=== PATIENT | male | born 1950 | race Caucasian/White ===

== ENCOUNTER 2021-03-09 09:16 | Inpatient (IN) | payer OTHER ==
[2021-03-09] MEDS ORDERED: SODIUM CHLORIDE 0.9% 500 ML INFUS.BAG IV ONE (10:56)
[2021-03-09 11:22] LABS: BASO % 0.7 % (0-2.0); HEMATOCRIT 40.6 % (35.4-49); HEMOGLOBIN 13.9 GM/dL (11.7-16.9); LYMPH % 9.4 % (8-40); MCH 32.5 pg (25.7-33.7); MCHC 34.3 g/dl (32.0-35.9); MEAN CELL VOLUME 94.9 fl (80-96); MEAN PLT VOLUME 8.6 fl (7.5-11.1); MONO % 6.7 % (3.8-10.2); NEUT % 83.2 % (42.8-82.8); PLATELET COUNT 255 10^3/uL (134-434); RBC 4.28 M/mm3 (4.00-5.60); RDW 13.5 % (11.9-15.9); WHITE BLOOD COUNT 7.4 K/mm3 (4.0-10.0)
[2021-03-09 11:38] LABS: INR 1.15 (0.83-1.09); PROTHROMBIN TIME (PATIENT) 13.3 SEC (9.7-13.0)
[2021-03-09 11:40] LABS: CHLORIDE 102 mmol/L (98-107); SODIUM 134 mmol/L (136-145)
[2021-03-09 11:41] LABS: ACTIVATED PTT 30.2 SECONDS (25.2-36.5)
[2021-03-09 11:42] LABS: CALCIUM 7.8 mg/dL (8.5-10.1)
[2021-03-09 11:43] LABS: ANION GAP 17 MMOL/L (8-16); CO2 15 mmol/L (21-32); GLUCOSE,RANDOM 262 mg/dL (74-106)
[2021-03-09 11:46] LABS: CREATININE 0.7 mg/dL (0.55-1.3); SGOT/AST 45 U/L (15-37); SGPT/ALT 32 U/L (13-61)
[2021-03-09 11:48] LABS: BILIRUBIN,TOTAL 0.5 mg/dL (0.2-1); TOT PROT 6.6 g/dl (6.4-8.2)
[2021-03-09 11:49] LABS: ALK PHOS 70 U/L (45-117)
[2021-03-09 12:45] LABS: VENOUS BASE EXCESS -7.4 mmol/L (-2-2); VENOUS O2 SATURATION 79.6 % (70-80); VENOUS PCO2 30.5 mmHg (38-52); VENOUS PH 7.356 (7.310-7.410)
[2021-03-09 13:32] LABS: EPI CELLS 11 /uL (0-25.1); HYALINE CASTS 4 /uL (0-3.1); PH,URINE 5.5 (5.0-8.0); URINE APPEARANCE CLEAR; URINE BACTERIA 2 /uL (0-1359); URINE BILIRUBIN NEGATIVE (NEGATIVE); URINE COLOR YELLOW; URINE GLUCOSE (UA) 3+ (NEGATIVE); URINE KETONE 4+ (NEGATIVE); URINE LEUK ESTERASE NEGATIVE (NEGATIVE); URINE NITRITE NEGATIVE (NEGATIVE); URINE PROTEIN 1+ (NEGATIVE); URINE RBC 9 /uL (0-23.9); URINE UROBILINOGEN 0.2 mg/dL (0.2-1.0); URINE WBC 6 /uL (0-25.8)
[2021-03-09] MEDS ORDERED: DEXAMETHASONE SOD PHOSPHATE 4 MG/1 ML VIAL IVPUSH ONE (15:55)
[2021-03-09] MEDS ORDERED: DEXAMETHASONE SOD PHOSPHATE 10 MG/1 ML VIAL ONE (16:10)
[2021-03-09] MEDS ORDERED: ACETAMINOPHEN 325 MG TABLET (FP) PO PRN (16:31)
[2021-03-09] MEDS ORDERED: REMDESIVIR 200 MG in SODIUM CHLORIDE 250 ML IVPB ONE (18:00)
[2021-03-09] MEDS: LACTATED RINGERS SOLUTION 1,000 ML IV SCH (19:41)
[2021-03-09] MEDS ORDERED: HEPARIN NA (PORCINE) 5,000 UNITS/ML 1ML VIAL ONE (21:23)
[2021-03-09] MEDS: HEPARIN NA (PORCINE) 5,000 UNITS/ML 1ML VIAL SQ SCH (21:55)
[2021-03-10] MEDS: INSULIN SLIDING SCALE (NOVOLOG) 1 VIAL SQ SCH ×2 (07:45→17:26)
[2021-03-10 09:23] LABS: HEMATOCRIT 40.9 % (35.4-49); HEMOGLOBIN 13.8 GM/dL (11.7-16.9); MCH 32.2 pg (25.7-33.7); MCHC 33.6 g/dl (32.0-35.9); MEAN CELL VOLUME 95.9 fl (80-96); MEAN PLT VOLUME 8.2 fl (7.5-11.1); PLATELET COUNT 239 10^3/uL (134-434); RBC 4.27 M/mm3 (4.00-5.60); RDW 13.9 % (11.9-15.9); WHITE BLOOD COUNT 4.9 K/mm3 (4.0-10.0)
[2021-03-10] MEDS ORDERED: DEXAMETHASONE SOD PHOSPHATE 10 MG/1 ML VIAL ONE (09:49)
[2021-03-10] MEDS ORDERED: CHOLECALCIFEROL (VIT D3) 1,000 UNIT (25 MCG) TABLET ONE (09:49)
[2021-03-10] MEDS ORDERED: HEPARIN NA (PORCINE) 5,000 UNITS/ML 1ML VIAL ONE (09:49)
[2021-03-10] MEDS ORDERED: ZINC SULFATE 220 MG CAPSULE (FP) ONE (09:49)
[2021-03-10 09:54] LABS: ALBUMIN 2.9 g/dl (3.4-5.0); BLOOD UREA NITROGEN 13.7 mg/dL (7-18); CREATININE 0.6 mg/dL (0.55-1.3)
[2021-03-10 09:56] LABS: BILIRUBIN,TOTAL 0.4 mg/dL (0.2-1); TOT PROT 6.5 g/dl (6.4-8.2)
[2021-03-10 09:57] LABS: CALCIUM 8.4 mg/dL (8.5-10.1)
[2021-03-10] MEDS: HEPARIN NA (PORCINE) 5,000 UNITS/ML 1ML VIAL SQ SCH ×2 (10:16→21:47)
[2021-03-10] MEDS: DEXAMETHASONE SOD PHOSPHATE 10 MG/1 ML VIAL IVPUSH SCH (10:16)
[2021-03-10] MEDS: ZINC SULFATE 220 MG CAPSULE (FP) PO SCH (10:16)
[2021-03-10] MEDS: CHOLECALCIFEROL (VIT D3) 1,000 UNIT (25 MCG) TABLET PO SCH (10:17)
[2021-03-10] MEDS: LACTATED RINGERS SOLUTION 1,000 ML IV SCH (17:26)
[2021-03-11] MEDS: INSULIN SLIDING SCALE (NOVOLOG) 1 VIAL SQ SCH (06:38)
[2021-03-11] MEDS ORDERED: ZINC SULFATE 220 MG CAPSULE (FP) ONE (10:05)
[2021-03-11] MEDS ORDERED: CHOLECALCIFEROL (VIT D3) 1,000 UNIT (25 MCG) TABLET ONE (10:05)
[2021-03-11] MEDS ORDERED: DEXAMETHASONE SOD PHOSPHATE 10 MG/1 ML VIAL ONE (10:05)
[2021-03-11] MEDS ORDERED: HEPARIN NA (PORCINE) 5,000 UNITS/ML 1ML VIAL ONE (10:06)
[2021-03-11] MEDS: CHOLECALCIFEROL (VIT D3) 1,000 UNIT (25 MCG) TABLET PO SCH (10:56)
[2021-03-11] MEDS: ZINC SULFATE 220 MG CAPSULE (FP) PO SCH (10:56)
[2021-03-11] MEDS: HEPARIN NA (PORCINE) 5,000 UNITS/ML 1ML VIAL SQ SCH ×2 (10:56→23:00)
[2021-03-11] MEDS: DEXAMETHASONE SOD PHOSPHATE 10 MG/1 ML VIAL IVPUSH SCH (10:56)
[2021-03-11 23:26] VITALS: BMI 34.7
[2021-03-12] MEDS ORDERED: ALBUTEROL SO4 HFA INHALER IH PRN (05:32)
[2021-03-12] MEDS: INSULIN SLIDING SCALE (NOVOLOG) 1 VIAL SQ SCH ×3 (06:49→21:39)
[2021-03-12] MEDS: ZINC SULFATE 220 MG CAPSULE (FP) PO SCH (10:51)
[2021-03-12] MEDS: CHOLECALCIFEROL (VIT D3) 1,000 UNIT (25 MCG) TABLET PO SCH (10:51)
[2021-03-12] MEDS: HEPARIN NA (PORCINE) 5,000 UNITS/ML 1ML VIAL SQ SCH (10:51)
[2021-03-12] MEDS: DEXAMETHASONE SOD PHOSPHATE 10 MG/1 ML VIAL IVPUSH SCH (10:52)
[2021-03-12] MEDS ORDERED: DEXAMETHASONE SOD PHOSPHATE 10 MG/1 ML VIAL IVPB ONE (11:06)
[2021-03-12] MEDS ORDERED: ALBUTEROL SO4 HFA INHALER IH SCH (12:00)
[2021-03-12] MEDS ORDERED: DEXAMETHASONE SOD PHOSPHATE 20 MG/5 ML VIAL IVPB ONE (12:34)
[2021-03-12] MEDS ORDERED: DEXAMETHASONE SOD PHOSPHATE 10 MG/1 ML VIAL ONE (12:36)
[2021-03-12 12:42] LABS: BASO % 0.3 % (0-2.0); HEMATOCRIT 43.6 % (35.4-49); HEMOGLOBIN 14.7 GM/dL (11.7-16.9); LYMPH % 5.6 % (8-40); MCH 31.8 pg (25.7-33.7); MCHC 33.7 g/dl (32.0-35.9); MEAN CELL VOLUME 94.3 fl (80-96); MONO % 5.5 % (3.8-10.2); NEUT % 88.6 % (42.8-82.8); PLATELET COUNT 303 10^3/uL (134-434); RBC 4.63 M/mm3 (4.00-5.60); RDW 14.1 % (11.9-15.9); WHITE BLOOD COUNT 10.6 K/mm3 (4.0-10.0)
[2021-03-12 13:48] LABS: CALCIUM 8.5 mg/dL (8.5-10.1)
[2021-03-12 13:49] LABS: BLOOD UREA NITROGEN 17.9 mg/dL (7-18); MAGNESIUM 2.5 mg/dL (1.8-2.4)
[2021-03-12 13:51] LABS: CREATININE 0.8 mg/dL (0.55-1.3); PHOSPHOROUS 1.9 mg/dL (2.5-4.9)
[2021-03-12 13:53] LABS: BILIRUBIN,TOTAL 0.4 mg/dL (0.2-1); TOT PROT 6.9 g/dl (6.4-8.2)
[2021-03-12] MEDS: ALBUTEROL SO4 HFA INHALER IH SCH ×2 (18:27→21:43)
[2021-03-12] MEDS: ENOXAPARIN NA (PORCINE) 40 MG/0.4 ML DISP.SYRIN SQ SCH (21:43)
[2021-03-12] MEDS ORDERED: BUDESONIDE/FORMETEROL FUMARATE 160/4.5 mcg INHALER IH SCH (22:00)
[2021-03-12] MEDS ORDERED: ENOXAPARIN NA (PORCINE) 40 MG/0.4 ML DISP.SYRIN SQ SCH (22:00)
[2021-03-13] MEDS: BUDESONIDE/FORMETEROL FUMARATE 160/4.5 mcg INHALER IH SCH ×3 (00:14→21:35)
[2021-03-13] MEDS: INSULIN SLIDING SCALE (NOVOLOG) 1 VIAL SQ SCH ×2 (06:39→17:41)
[2021-03-13 07:14] LABS: ALBUMIN 2.6 g/dl (3.4-5.0); BASO % 0.1 % (0-2.0); BLOOD UREA NITROGEN 25.8 mg/dL (7-18); CALCIUM 8.5 mg/dL (8.5-10.1); HEMATOCRIT 43.9 % (35.4-49); HEMOGLOBIN 14.5 GM/dL (11.7-16.9); LYMPH % 6.7 % (8-40); MAGNESIUM 2.7 mg/dL (1.8-2.4); MCH 31.7 pg (25.7-33.7); MCHC 33.1 g/dl (32.0-35.9); MEAN CELL VOLUME 95.9 fl (80-96); MEAN PLT VOLUME 8.8 fl (7.5-11.1); MONO % 4.8 % (3.8-10.2); NEUT % 88.4 % (42.8-82.8); PLATELET COUNT 312 10^3/uL (134-434); RBC 4.58 M/mm3 (4.00-5.60); RDW 14.4 % (11.9-15.9); WHITE BLOOD COUNT 10.7 K/mm3 (4.0-10.0)
[2021-03-13 07:17] LABS: CREATININE 0.7 mg/dL (0.55-1.3)
[2021-03-13 07:18] LABS: BILIRUBIN,TOTAL 0.5 mg/dL (0.2-1); PHOSPHOROUS 3.5 mg/dL (2.5-4.9)
[2021-03-13 07:19] LABS: TOT PROT 6.5 g/dl (6.4-8.2)
[2021-03-13] MEDS: CHOLECALCIFEROL (VIT D3) 1,000 UNIT (25 MCG) TABLET PO SCH (09:56)
[2021-03-13] MEDS: ZINC SULFATE 220 MG CAPSULE (FP) PO SCH (09:56)
[2021-03-13] MEDS: ENOXAPARIN NA (PORCINE) 40 MG/0.4 ML DISP.SYRIN SQ SCH ×2 (09:56→21:35)
[2021-03-13] MEDS: ASCORBIC ACID 500 MG TABLET (FP) PO SCH ×2 (09:56→21:34)
[2021-03-13] MEDS: DEXAMETHASONE SOD PHOSPHATE 10 MG/1 ML VIAL IVPUSH SCH (09:56)
[2021-03-13] MEDS ORDERED: DEXAMETHASONE SOD PHOSPHATE 10 MG/1 ML VIAL IVPUSH SCH (10:00)
[2021-03-13] MEDS: ALBUTEROL SO4 HFA INHALER IH SCH ×4 (10:13→21:35)
[2021-03-14] MEDS ORDERED: MELATONIN 5 MG TABLETS PO ONE (01:43)
[2021-03-14 06:53] LABS: BASO % 0.2 % (0-2.0); HEMATOCRIT 43.9 % (35.4-49); HEMOGLOBIN 14.1 GM/dL (11.7-16.9); LYMPH % 4.8 % (8-40); MEAN CELL VOLUME 96.8 fl (80-96); MONO % 5.4 % (3.8-10.2); NEUT % 89.6 % (42.8-82.8); PLATELET COUNT 339 10^3/uL (134-434); RBC 4.54 M/mm3 (4.00-5.60); RDW 14.4 % (11.9-15.9)
[2021-03-14] MEDS: INSULIN SLIDING SCALE (NOVOLOG) 1 VIAL SQ SCH ×2 (07:02→17:34)
[2021-03-14 07:14] LABS: CALCIUM 8.5 mg/dL (8.5-10.1)
[2021-03-14 07:15] LABS: ALBUMIN 2.5 g/dl (3.4-5.0); BLOOD UREA NITROGEN 25.9 mg/dL (7-18)
[2021-03-14 07:18] LABS: CREATININE 0.7 mg/dL (0.55-1.3)
[2021-03-14 07:19] LABS: TOT PROT 6.3 g/dl (6.4-8.2)
[2021-03-14 07:20] LABS: BILIRUBIN,TOTAL 0.6 mg/dL (0.2-1)
[2021-03-14] MEDS: ALBUTEROL SO4 HFA INHALER IH SCH ×4 (08:15→21:39)
[2021-03-14] MEDS: DEXAMETHASONE SOD PHOSPHATE 10 MG/1 ML VIAL IVPUSH SCH (09:40)
[2021-03-14] MEDS: CHOLECALCIFEROL (VIT D3) 1,000 UNIT (25 MCG) TABLET PO SCH (09:40)
[2021-03-14] MEDS: ENOXAPARIN NA (PORCINE) 40 MG/0.4 ML DISP.SYRIN SQ SCH ×2 (09:40→21:40)
[2021-03-14] MEDS: ZINC SULFATE 220 MG CAPSULE (FP) PO SCH (09:40)
[2021-03-14] MEDS: ASCORBIC ACID 500 MG TABLET (FP) PO SCH ×2 (09:41→21:40)
[2021-03-14] MEDS: BUDESONIDE/FORMETEROL FUMARATE 160/4.5 mcg INHALER IH SCH ×2 (09:41→21:40)
[2021-03-14] MEDS ORDERED: MELATONIN 5 MG TABLETS PO PRN (22:00)
[2021-03-15] MEDS: INSULIN SLIDING SCALE (NOVOLOG) 1 VIAL SQ SCH ×2 (08:50→17:28)
[2021-03-15] MEDS: ALBUTEROL SO4 HFA INHALER IH SCH ×4 (08:59→21:32)
[2021-03-15] MEDS: DEXAMETHASONE SOD PHOSPHATE 10 MG/1 ML VIAL IVPUSH SCH (09:14)
[2021-03-15] MEDS: ZINC SULFATE 220 MG CAPSULE (FP) PO SCH (09:14)
[2021-03-15] MEDS: ACETAMINOPHEN 325 MG TABLET (FP) PO PRN ×2 (09:14→17:29)
[2021-03-15] MEDS: CHOLECALCIFEROL (VIT D3) 1,000 UNIT (25 MCG) TABLET PO SCH (09:14)
[2021-03-15] MEDS: ENOXAPARIN NA (PORCINE) 40 MG/0.4 ML DISP.SYRIN SQ SCH ×2 (09:14→21:30)
[2021-03-15] MEDS: ASCORBIC ACID 500 MG TABLET (FP) PO SCH ×2 (09:16→21:31)
[2021-03-15] MEDS: BUDESONIDE/FORMETEROL FUMARATE 160/4.5 mcg INHALER IH SCH ×2 (09:16→21:31)
[2021-03-15] MEDS: LORazepam 2 MG/ML SDV VIAL IVPUSH PRN (17:27)
[2021-03-15] MEDS ORDERED: ONDANSETRON 4 MG/2 ML VIAL IVPUSH ONE (20:36)
[2021-03-15] MEDS ORDERED: LORazepam 2 MG/ML SDV VIAL IVPUSH ONE (20:37)
[2021-03-15] MEDS ORDERED: INSULIN (LEVEMIR) 100 UNITS/ML UNITS SQ SCH (22:00)
[2021-03-15] MEDS ORDERED: INSULIN (NOVOLOG) ASPART 100 UNITS/ML 10ML VIAL SQ ONE (22:32)
[2021-03-16] MEDS: LORazepam 2 MG/ML SDV VIAL IVPUSH PRN ×3 (04:20→18:05)
[2021-03-16] MEDS: INSULIN SLIDING SCALE (NOVOLOG) 1 VIAL SQ SCH ×2 (07:02→17:50)
[2021-03-16 07:57] LABS: HEMATOCRIT 50.9 % (35.4-49); HEMOGLOBIN 16.6 GM/dL (11.7-16.9); MCH 31.6 pg (25.7-33.7); MCHC 32.5 g/dl (32.0-35.9); MEAN CELL VOLUME 97.2 fl (80-96); MEAN PLT VOLUME 9.1 fl (7.5-11.1); PLATELET COUNT 355 10^3/uL (134-434); RBC 5.23 M/mm3 (4.00-5.60); RDW 14.5 % (11.9-15.9)
[2021-03-16 08:21] LABS: CHLORIDE 116 mmol/L (98-107); SODIUM 145 mmol/L (136-145)
[2021-03-16 08:38] LABS: ALBUMIN 2.6 g/dl (3.4-5.0); ANION GAP 20 MMOL/L (8-16); BLOOD UREA NITROGEN 38.3 mg/dL (7-18); CO2 9 mmol/L (21-32); GLUCOSE,RANDOM 373 mg/dL (74-106)
[2021-03-16 08:41] LABS: SGOT/AST 15 U/L (15-37); SGPT/ALT 19 U/L (13-61)
[2021-03-16 08:42] LABS: BILIRUBIN,TOTAL 0.8 mg/dL (0.2-1); TOT PROT 7.1 g/dl (6.4-8.2)
[2021-03-16 08:43] LABS: ALK PHOS 98 U/L (45-117)
[2021-03-16] MEDS: ALBUTEROL SO4 HFA INHALER IH SCH ×4 (08:43→22:45)
[2021-03-16] MEDS: DEXAMETHASONE SOD PHOSPHATE 10 MG/1 ML VIAL IVPUSH SCH (10:22)
[2021-03-16] MEDS: ENOXAPARIN NA (PORCINE) 40 MG/0.4 ML DISP.SYRIN SQ SCH ×2 (10:22→21:57)
[2021-03-16] MEDS: ZINC SULFATE 220 MG CAPSULE (FP) PO SCH (10:22)
[2021-03-16] MEDS: BUDESONIDE/FORMETEROL FUMARATE 160/4.5 mcg INHALER IH SCH ×2 (10:23→21:58)
[2021-03-16] MEDS: ASCORBIC ACID 500 MG TABLET (FP) PO SCH ×2 (10:23→21:58)
[2021-03-16] MEDS: CHOLECALCIFEROL (VIT D3) 1,000 UNIT (25 MCG) TABLET PO SCH (10:23)
[2021-03-16] MEDS ORDERED: SODIUM CHLORIDE 100 ML IVPB ONE ×2 (11:22→17:42)
[2021-03-16] MEDS ORDERED: AMPICILLIN NA/SULBACTAM NA 3 GM VIAL ONE ×2 (11:22→17:42)
[2021-03-16] MEDS: AMPICILLIN NA/SULBACTAM NA 3 GM in SODIUM CHLORIDE 100 ML IVPB SCH ×2 (11:23→17:48)
[2021-03-16 12:00] LABS: ANISOCYTOSIS 0; HELMET CELLS 0; HOWELL-JOLLY BODIES 0; MACROCYTOSIS 0; OVALOCYTE 0; PLATELET ESTIMATE NORMAL; ROULEAU 0; SICKELED CELLS 0; TARGET CELLS 0; TEAR DROP CELLS 0; TOXIC GRANULATION 0
[2021-03-16] MEDS ORDERED: morphine SULFATE 4 MG/ML VIAL IVPUSH PRN (13:00)
[2021-03-16] MEDS ORDERED: INSULIN (LEVEMIR) 100 UNITS/ML UNITS SQ SCH (22:00)
[2021-03-16] MEDS ORDERED: INSULIN (NOVOLOG) ASPART 100 UNITS/ML 10ML VIAL SQ ONE (23:31)
[2021-03-17] MEDS: AMPICILLIN NA/SULBACTAM NA 3 GM in SODIUM CHLORIDE 100 ML IVPB SCH ×3 (03:00→17:03)
[2021-03-17] MEDS ORDERED: AMPICILLIN NA/SULBACTAM NA 3 GM VIAL ONE ×4 (03:21→16:18)
[2021-03-17] MEDS ORDERED: SODIUM CHLORIDE 100 ML IVPB ONE ×4 (03:21→16:19)
[2021-03-17] MEDS: LORazepam 2 MG/ML SDV VIAL IVPUSH PRN (03:56)
[2021-03-17] MEDS: INSULIN SLIDING SCALE (NOVOLOG) 1 VIAL SQ SCH ×3 (06:30→16:53)
[2021-03-17] MEDS ORDERED: dilTIAZem HCL 50 MG/10 ML - 10 ML VIAL IVPUSH ONE ×2 (07:44→11:30)
[2021-03-17] MEDS ORDERED: dilTIAZem HCL 125 MG/25 ML - 25 ML VIAL ONE (07:47)
[2021-03-17 08:04] LABS: HEMATOCRIT 55.4 % (35.4-49); MCH 31.4 pg (25.7-33.7); MCHC 32.5 g/dl (32.0-35.9); MEAN CELL VOLUME 96.6 fl (80-96); MEAN PLT VOLUME 10.1 fl (7.5-11.1); PLATELET COUNT 349 10^3/uL (134-434); RBC 5.73 M/mm3 (4.00-5.60); RDW 15.1 % (11.9-15.9); WHITE BLOOD COUNT 22.3 K/mm3 (4.0-10.0)
[2021-03-17 08:15] LABS: CHLORIDE 126 mmol/L (98-107); SODIUM 156 mmol/L (136-145)
[2021-03-17 08:17] LABS: CALCIUM 9.8 mg/dL (8.5-10.1)
[2021-03-17 08:18] LABS: ALBUMIN 2.6 g/dl (3.4-5.0); ANION GAP 19 MMOL/L (8-16); CO2 12 mmol/L (21-32); MAGNESIUM 3.8 mg/dL (1.8-2.4)
[2021-03-17 08:21] LABS: CREATININE 1.7 mg/dL (0.55-1.3); PHOSPHOROUS 2.4 mg/dL (2.5-4.9); SGOT/AST 17 U/L (15-37); SGPT/ALT 20 U/L (13-61)
[2021-03-17 08:23] LABS: BILIRUBIN,TOTAL 0.5 mg/dL (0.2-1); TOT PROT 7.3 g/dl (6.4-8.2)
[2021-03-17 08:24] LABS: ALK PHOS 112 U/L (45-117)
[2021-03-17 08:38] LABS: BLOOD UREA NITROGEN 72.9 mg/dL (7-18)
[2021-03-17 08:51] LABS: GLUCOSE,RANDOM 523 mg/dL (74-106)
[2021-03-17] MEDS: ALBUTEROL SO4 HFA INHALER IH SCH ×4 (09:00→22:13)
[2021-03-17 09:27] LABS: ANISOCYTOSIS 1+; MACROCYTOSIS 0; PLATELET ESTIMATE NORMAL
[2021-03-17] MEDS: CHOLECALCIFEROL (VIT D3) 1,000 UNIT (25 MCG) TABLET PO SCH (10:19)
[2021-03-17] MEDS: ASCORBIC ACID 500 MG TABLET (FP) PO SCH ×2 (10:19→22:26)
[2021-03-17] MEDS: ZINC SULFATE 220 MG CAPSULE (FP) PO SCH (10:20)
[2021-03-17] MEDS: ENOXAPARIN NA (PORCINE) 40 MG/0.4 ML DISP.SYRIN SQ SCH ×2 (10:21→22:25)
[2021-03-17] MEDS: DEXAMETHASONE SOD PHOSPHATE 10 MG/1 ML VIAL IVPUSH SCH (10:21)
[2021-03-17] MEDS: BUDESONIDE/FORMETEROL FUMARATE 160/4.5 mcg INHALER IH SCH ×2 (10:22→22:26)
[2021-03-17] MEDS: INSULIN (LEVEMIR) 100 UNITS/ML UNITS SQ SCH ×2 (11:00→22:35)
[2021-03-17] MEDS ORDERED: INSULIN REGULAR HUMAN 100 UNITS/ML *VIAL IVPUSH ONE (16:37)
[2021-03-17] MEDS: ACETAMINOPHEN 1000 MG/100 ML BAG IVPB PRN (17:05)
[2021-03-17] MEDS ORDERED: INSULIN (LEVEMIR) 100 UNITS/ML UNITS SQ SCH (22:31)
[2021-03-18] MEDS ORDERED: AMPICILLIN NA/SULBACTAM NA 3 GM VIAL ONE ×3 (02:16→16:48)
[2021-03-18] MEDS ORDERED: SODIUM CHLORIDE 100 ML IVPB ONE ×3 (02:17→16:48)
[2021-03-18] MEDS ORDERED: dilTIAZem HCL 25 MG/5 ML - 5 ML VIAL ONE (09:31)
[2021-03-18] MEDS: AMPICILLIN NA/SULBACTAM NA 3 GM in SODIUM CHLORIDE 100 ML IVPB SCH ×3 (09:40→20:46)
[2021-03-18] MEDS: ALBUTEROL SO4 HFA INHALER IH SCH ×4 (09:41→20:47)
[2021-03-18] MEDS: INSULIN SLIDING SCALE (NOVOLOG) 1 VIAL SQ SCH ×3 (09:41→18:34)
[2021-03-18] MEDS: DEXAMETHASONE SOD PHOSPHATE 10 MG/1 ML VIAL IVPUSH SCH (09:41)
[2021-03-18] MEDS: ZINC SULFATE 220 MG CAPSULE (FP) PO SCH (09:42)
[2021-03-18] MEDS: ENOXAPARIN NA (PORCINE) 40 MG/0.4 ML DISP.SYRIN SQ SCH ×2 (09:42→21:24)
[2021-03-18] MEDS: BUDESONIDE/FORMETEROL FUMARATE 160/4.5 mcg INHALER IH SCH ×2 (09:43→21:24)
[2021-03-18] MEDS: CHOLECALCIFEROL (VIT D3) 1,000 UNIT (25 MCG) TABLET PO SCH (09:43)
[2021-03-18] MEDS: ASCORBIC ACID 500 MG TABLET (FP) PO SCH ×2 (09:43→21:24)
[2021-03-18] MEDS ORDERED: INSULIN (LEVEMIR) 100 UNITS/ML UNITS SQ ONE (10:24)
[2021-03-18] MEDS: ACETAMINOPHEN 1000 MG/100 ML BAG IVPB PRN (12:32)
[2021-03-18] MEDS ORDERED: SODIUM CHLORIDE 0.45% 1,000 ML IV SCH (13:00)
[2021-03-18 14:20] LABS: HEMATOCRIT 52.9 % (35.4-49); MCH 30.8 pg (25.7-33.7); MCHC 32.1 g/dl (32.0-35.9); MEAN CELL VOLUME 95.9 fl (80-96); MEAN PLT VOLUME 11.3 fl (7.5-11.1); PLATELET COUNT 225 10^3/uL (134-434); RBC 5.52 M/mm3 (4.00-5.60); WHITE BLOOD COUNT 18.7 K/mm3 (4.0-10.0)
[2021-03-18 14:55] LABS: CHLORIDE 136 mmol/L (98-107)
[2021-03-18 14:57] LABS: CALCIUM 9.2 mg/dL (8.5-10.1); CO2 16 mmol/L (21-32)
[2021-03-18 15:01] LABS: SGOT/AST 506 U/L (15-37); SGPT/ALT 213 U/L (13-61)
[2021-03-18 15:02] LABS: BILIRUBIN,TOTAL 0.5 mg/dL (0.2-1)
[2021-03-18 15:03] LABS: TOT PROT 6.4 g/dl (6.4-8.2)
[2021-03-18 15:04] LABS: ALK PHOS 92 U/L (45-117)
[2021-03-18 15:28] LABS: ANISOCYTOSIS 1+; MACROCYTOSIS 0; PLATELET ESTIMATE NORMAL
[2021-03-18 16:08] LABS: ANION GAP 13 MMOL/L (8-16); BLOOD UREA NITROGEN 125.9 mg/dL (7-18); GLUCOSE,RANDOM 441 mg/dL (74-106); LDH > 1000 U/L (87-246); SODIUM 165 mmol/L (136-145)
[2021-03-18] MEDS: INSULIN (LEVEMIR) 100 UNITS/ML UNITS SQ SCH (21:24)
[2021-03-19] MEDS ORDERED: SODIUM CHLORIDE 100 ML IVPB ONE ×3 (00:49→16:51)
[2021-03-19] MEDS ORDERED: AMPICILLIN NA/SULBACTAM NA 3 GM VIAL ONE ×3 (00:49→16:51)
[2021-03-19] MEDS: AMPICILLIN NA/SULBACTAM NA 3 GM in SODIUM CHLORIDE 100 ML IVPB SCH ×3 (01:06→17:11)
[2021-03-19] MEDS: INSULIN SLIDING SCALE (NOVOLOG) 1 VIAL SQ SCH ×4 (06:00→16:10)
[2021-03-19] MEDS: INSULIN (LEVEMIR) 100 UNITS/ML UNITS SQ SCH ×2 (06:00→21:33)
[2021-03-19] MEDS: ALBUTEROL SO4 HFA INHALER IH SCH ×3 (08:00→16:09)
[2021-03-19] MEDS: ENOXAPARIN NA (PORCINE) 40 MG/0.4 ML DISP.SYRIN SQ SCH (10:24)
[2021-03-19] MEDS: ZINC SULFATE 220 MG CAPSULE (FP) PO SCH (10:25)
[2021-03-19] MEDS: DEXAMETHASONE SOD PHOSPHATE 10 MG/1 ML VIAL IVPUSH SCH (10:25)
[2021-03-19] MEDS: BUDESONIDE/FORMETEROL FUMARATE 160/4.5 mcg INHALER IH SCH ×2 (10:26→21:34)
[2021-03-19] MEDS: CHOLECALCIFEROL (VIT D3) 1,000 UNIT (25 MCG) TABLET PO SCH (10:26)
[2021-03-19] MEDS: ASCORBIC ACID 500 MG TABLET (FP) PO SCH (10:26)
[2021-03-19] MEDS: ACETAMINOPHEN 1000 MG/100 ML BAG IVPB PRN (10:29)
[2021-03-19] MEDS ORDERED: AMINO ACIDS 4.25%/D5W 1,000 ML IV SCH ×2 (11:45→12:15)
[2021-03-19] MEDS ORDERED: MULTIVIT INJECTION ADULT 10 ML in AMINO ACIDS 4.25%/D5W 1,000 ML IV SCH (11:47)
[2021-03-19 11:52] LABS: HEMOGLOBIN 17.3 GM/dL (11.7-16.9); MCH 31.5 pg (25.7-33.7); MCHC 32.6 g/dl (32.0-35.9); MEAN CELL VOLUME 96.7 fl (80-96); PLATELET COUNT 157 10^3/uL (134-434); RBC 5.49 M/mm3 (4.00-5.60); RDW 15.6 % (11.9-15.9); WHITE BLOOD COUNT 19.2 K/mm3 (4.0-10.0)
[2021-03-19] MEDS ORDERED: CYANOCOBALAMIN (VITAMIN B-12) 1000 MCG/1 ML VIAL SQ SCH (12:00)
[2021-03-19 12:06] LABS: CHLORIDE 140 mmol/L (98-107)
[2021-03-19 12:10] LABS: CALCIUM 8.9 mg/dL (8.5-10.1)
[2021-03-19 12:11] LABS: ALBUMIN 1.9 g/dl (3.4-5.0); CO2 16 mmol/L (21-32); GLUCOSE,RANDOM 291 mg/dL (74-106); MAGNESIUM 3.4 mg/dL (1.8-2.4)
[2021-03-19 12:13] LABS: CREATININE 5.9 mg/dL (0.55-1.3); PHOSPHOROUS 2.7 mg/dL (2.5-4.9); SGOT/AST 491 U/L (15-37); SGPT/ALT 433 U/L (13-61)
[2021-03-19 12:15] LABS: BILIRUBIN,TOTAL 0.6 mg/dL (0.2-1)
[2021-03-19] MEDS ORDERED: MULTIVIT INJ. ADULT COMBO WITH VIT K 1 COMBO 10 ML VIAL IV SCH (12:15)
[2021-03-19] MEDS ORDERED: AMINO ACIDS 4.25%/D5W 2,000 ML IV SCH ×2 (12:15→12:17)
[2021-03-19 12:17] LABS: ALK PHOS 94 U/L (45-117)
[2021-03-19 12:56] LABS: BLOOD UREA NITROGEN > 150.0 mg/dL (7-18)
[2021-03-19 12:57] LABS: ANION GAP 12 MMOL/L (8-16); SODIUM 168 mmol/L (136-145)
[2021-03-19 13:10] LABS: ALLENS TEST POSITIVE; ARTERIAL BLD GAS O2 SATURATION 97.2 % (95-98); ARTERIAL BLOOD GAS BASE EXCESS -8.5 mmol/L (-2-2); ARTERIAL BLOOD GAS PO2 95.4 mmHg (80-100)
[2021-03-19 13:11] LABS: VENT MODE EPAP-5
[2021-03-19 13:12] LABS: VENT RATE 12
[2021-03-19 14:41] LABS: ANISOCYTOSIS 2+; MACROCYTOSIS 0; PLATELET ESTIMATE DECREASED
[2021-03-19] MEDS ORDERED: INSULIN REGULAR HUMAN 100 UNITS/ML *VIAL IVPUSH ONE (15:02)
[2021-03-19] MEDS ORDERED: CALCIUM GLUCONATE 10% - 1,000 MG/10 ML VIAL IVPB ONE (15:02)
[2021-03-19] MEDS ORDERED: DEXTROSE 50%-WATER - 25 GM/50 ML VIAL IVPUSH ONE (15:02)
[2021-03-19] MEDS ORDERED: SODIUM BICARBONATE 8.4% 50 MEQ/50 ML DISP.SYRIN IVPUSH ONE ×2 (15:02→17:00)
[2021-03-19] MEDS ORDERED: SODIUM ZIRCONIUM CYCLOSILICATE (LOKELMA) 5 GM PACKET PO SCH (15:15)
[2021-03-19] MEDS ORDERED: SODIUM CHLORIDE 0.45% 1,000 ML IV SCH (15:15)
[2021-03-19] MEDS ORDERED: DEXTROSE 5%-WATER - 1,000 ML IV SCH ×3 (15:15→22:53)
[2021-03-19] MEDS ORDERED: DEXTROSE 50%-WATER 25 GM/50 ML DISP.SYRIN ONE (15:36)
[2021-03-19] MEDS ORDERED: CALCIUM GLUCONATE 10% - 1,000 MG/10 ML VIAL ONE (15:37)
[2021-03-19] MEDS ORDERED: ACETAMINOPHEN 1000 MG/100 ML BAG IVPB PRN (21:04)
[2021-03-19] MEDS ORDERED: LORazepam 2 MG/ML SDV VIAL IVPUSH PRN (21:04)
[2021-03-19] MEDS ORDERED: morphine SULFATE 4 MG/ML VIAL IVPUSH PRN (21:04)
[2021-03-19 21:20] LABS: ANION GAP 11 MMOL/L (8-16); CALCIUM 8.7 mg/dL (8.5-10.1); CHLORIDE 140 mmol/L (98-107); CO2 18 mmol/L (21-32); CREATININE 4.9 mg/dL (0.55-1.3); GLUCOSE,RANDOM 350 mg/dL (74-106); SODIUM 169 mmol/L (136-145)
[2021-03-19] MEDS: MUPIROCIN 2% TOPICAL OINTMENT FOR DECOLONIZATION NS SCH (21:31)
[2021-03-19] MEDS: CHLORHEXIDINE GLUCONATE 4% CLEANSER FOR DECOLONIZATION TP SCH (21:31)
[2021-03-20] MEDS: INSULIN (LEVEMIR) 100 UNITS/ML UNITS SQ SCH ×2 (06:00→21:14)
[2021-03-20] MEDS: INSULIN SLIDING SCALE (NOVOLOG) 1 VIAL SQ SCH ×3 (06:00→18:39)
[2021-03-20 07:35] LABS: HEMATOCRIT 52.7 % (35.4-49); HEMOGLOBIN 17.2 GM/dL (11.7-16.9); MCH 31.4 pg (25.7-33.7); MCHC 32.7 g/dl (32.0-35.9); MEAN CELL VOLUME 96.2 fl (80-96); MEAN PLT VOLUME 12.2 fl (7.5-11.1); PLATELET COUNT 105 10^3/uL (134-434); RBC 5.48 M/mm3 (4.00-5.60); RDW 15.4 % (11.9-15.9); WHITE BLOOD COUNT 22.1 K/mm3 (4.0-10.0)
[2021-03-20 07:58] LABS: CHLORIDE 134 mmol/L (98-107)
[2021-03-20 08:00] LABS: ALBUMIN 1.8 g/dl (3.4-5.0); CALCIUM 8.4 mg/dL (8.5-10.1); CO2 20 mmol/L (21-32); MAGNESIUM 3.2 mg/dL (1.8-2.4)
[2021-03-20 08:02] LABS: PHOSPHOROUS 3.7 mg/dL (2.5-4.9); SGPT/ALT 457 U/L (13-61)
[2021-03-20 08:04] LABS: CREATININE 4.4 mg/dL (0.55-1.3); SGOT/AST 327 U/L (15-37)
[2021-03-20 08:05] LABS: BILIRUBIN,TOTAL 0.6 mg/dL (0.2-1); TOT PROT 5.7 g/dl (6.4-8.2)
[2021-03-20 08:06] LABS: ALK PHOS 108 U/L (45-117)
[2021-03-20] MEDS: ALBUTEROL SO4 HFA INHALER IH SCH ×4 (08:24→21:14)
[2021-03-20 08:54] LABS: ANION GAP 10 MMOL/L (8-16); GLUCOSE,RANDOM 565 mg/dL (74-106); SODIUM 164 mmol/L (136-145)
[2021-03-20 09:12] LABS: BLOOD UREA NITROGEN 157.1 mg/dL (7-18)
[2021-03-20 09:21] LABS: ANISOCYTOSIS 2+; MACROCYTOSIS 0; OVALOCYTE 1+; PLATELET ESTIMATE NORMAL; TARGET CELLS 1+
[2021-03-20] MEDS ORDERED: SODIUM CHLORIDE 100 ML IVPB ONE ×2 (09:43→21:05)
[2021-03-20] MEDS ORDERED: AMPICILLIN NA/SULBACTAM NA 3 GM VIAL ONE ×2 (09:43→21:05)
[2021-03-20] MEDS ORDERED: DEXAMETHASONE SOD PHOSPHATE 10 MG/1 ML VIAL IVPUSH SCH (10:00)
[2021-03-20] MEDS ORDERED: ENOXAPARIN NA (PORCINE) 30 MG/0.3 ML DISP.SYRIN SQ SCH (10:00)
[2021-03-20] MEDS ORDERED: MULTIVIT INJ. ADULT COMBO WITH VIT K 1 COMBO 10 ML VIAL IV SCH (10:00)
[2021-03-20] MEDS: MUPIROCIN 2% TOPICAL OINTMENT FOR DECOLONIZATION NS SCH ×2 (10:24→21:14)
[2021-03-20] MEDS: BUDESONIDE/FORMETEROL FUMARATE 160/4.5 mcg INHALER IH SCH ×2 (10:25→21:15)
[2021-03-20] MEDS: CYANOCOBALAMIN (VITAMIN B-12) 1000 MCG/1 ML VIAL SQ SCH (10:25)
[2021-03-20] MEDS ORDERED: SODIUM CHLORIDE 0.45% 1,000 ML IV SCH (11:00)
[2021-03-20] MEDS: AMPICILLIN NA/SULBACTAM NA 3 GM in SODIUM CHLORIDE 100 ML IVPB SCH ×2 (11:20→21:15)
[2021-03-20] MEDS: SODIUM ZIRCONIUM CYCLOSILICATE (LOKELMA) 5 GM PACKET PO SCH (11:23)
[2021-03-20] MEDS: METOPROLOL TARTRATE 5 MG/5 ML VIAL IVPUSH SCH ×3 (11:33→23:23)
[2021-03-20] MEDS ORDERED: HEPARIN NA (PORCINE) 5,000 UNITS/ML 1ML VIAL SQ SCH (14:00)
[2021-03-20] MEDS: HEPARIN NA (PORCINE) 5,000 UNITS/ML 1ML VIAL SQ SCH (21:14)
[2021-03-20] MEDS: CHLORHEXIDINE GLUCONATE 4% CLEANSER FOR DECOLONIZATION TP SCH (21:15)
[2021-03-21] MEDS: METOPROLOL TARTRATE 5 MG/5 ML VIAL IVPUSH SCH ×3 (05:56→16:59)
[2021-03-21] MEDS: INSULIN (LEVEMIR) 100 UNITS/ML UNITS SQ SCH ×2 (06:03→22:05)
[2021-03-21] MEDS: HEPARIN NA (PORCINE) 5,000 UNITS/ML 1ML VIAL SQ SCH ×3 (06:03→22:05)
[2021-03-21] MEDS: INSULIN SLIDING SCALE (NOVOLOG) 1 VIAL SQ SCH ×3 (06:04→17:29)
[2021-03-21 08:11] LABS: HEMATOCRIT 48.9 % (35.4-49); HEMOGLOBIN 15.6 GM/dL (11.7-16.9); LYMPH % 2.7 % (8-40); MCH 31.2 pg (25.7-33.7); MCHC 31.8 g/dl (32.0-35.9); MEAN CELL VOLUME 97.9 fl (80-96); MEAN PLT VOLUME 12.7 fl (7.5-11.1); MONO % 1.7 % (3.8-10.2); NEUT % 95.6 % (42.8-82.8); PLATELET COUNT 53 10^3/uL (134-434); RBC 4.99 M/mm3 (4.00-5.60); RDW 15.7 % (11.9-15.9); WHITE BLOOD COUNT 19.4 K/mm3 (4.0-10.0)
[2021-03-21 08:42] LABS: CHLORIDE 125 mmol/L (98-107); SODIUM 156 mmol/L (136-145)
[2021-03-21 08:46] LABS: ALBUMIN 1.6 g/dl (3.4-5.0)
[2021-03-21 08:48] LABS: ANION GAP 10 MMOL/L (8-16); CO2 21 mmol/L (21-32); GLUCOSE,RANDOM 241 mg/dL (74-106)
[2021-03-21 08:49] LABS: CREATININE 2.5 mg/dL (0.55-1.3)
[2021-03-21 08:50] LABS: SGOT/AST 112 U/L (15-37); SGPT/ALT 311 U/L (13-61)
[2021-03-21 08:51] LABS: BILIRUBIN,TOTAL 0.5 mg/dL (0.2-1)
[2021-03-21] MEDS ORDERED: AMPICILLIN NA/SULBACTAM NA 3 GM VIAL ONE ×2 (08:51→21:28)
[2021-03-21] MEDS ORDERED: SODIUM CHLORIDE 100 ML IVPB ONE ×2 (08:51→21:29)
[2021-03-21 08:52] LABS: ALK PHOS 97 U/L (45-117)
[2021-03-21 08:57] LABS: BLOOD UREA NITROGEN 130.4 mg/dL (7-18)
[2021-03-21] MEDS: SODIUM ZIRCONIUM CYCLOSILICATE (LOKELMA) 5 GM PACKET PO SCH (09:10)
[2021-03-21] MEDS: MUPIROCIN 2% TOPICAL OINTMENT FOR DECOLONIZATION NS SCH ×2 (09:10→22:04)
[2021-03-21] MEDS: AMPICILLIN NA/SULBACTAM NA 3 GM in SODIUM CHLORIDE 100 ML IVPB SCH ×2 (09:11→22:06)
[2021-03-21] MEDS: BUDESONIDE/FORMETEROL FUMARATE 160/4.5 mcg INHALER IH SCH ×2 (09:11→22:06)
[2021-03-21 09:13] LABS: ANISOCYTOSIS 0; HELMET CELLS 0; HOWELL-JOLLY BODIES 0; MACROCYTOSIS 0; OVALOCYTE 0; PLATELET ESTIMATE DECREASED; ROULEAU 0; SICKELED CELLS 0; TARGET CELLS 0; TEAR DROP CELLS 0; TOXIC GRANULATION 0
[2021-03-21] MEDS ORDERED: DEXAMETHASONE SOD PHOSPHATE 10 MG/1 ML VIAL IVPUSH SCH (10:00)
[2021-03-21] MEDS: CYANOCOBALAMIN (VITAMIN B-12) 1000 MCG/1 ML VIAL SQ SCH (10:31)
[2021-03-21 14:24] VITALS: TEMP 99.8
[2021-03-21] MEDS ORDERED: SODIUM CHLORIDE 0.45% IV SCH (14:26)
[2021-03-21] MEDS ORDERED: MULTIVIT IV SCH (14:26)
[2021-03-21] MEDS ORDERED: THIAMINE HCL 200 MG/2 ML VIAL IVPB SCH (14:30)
[2021-03-21] MEDS ORDERED: LORazepam 2 MG/ML SDV VIAL IVPUSH PRN (15:39)
[2021-03-21] MEDS ORDERED: MULTIVIT INJ. ADULT COMBO WITH VIT K 1 COMBO 10 ML VIAL IV SCH (16:30)
[2021-03-21] MEDS ORDERED: AMINO ACIDS 4.25%/D5W 1,000 ML IV SCH (16:30)
[2021-03-21 17:53] LABS: ARTERIAL BLD GAS O2 SATURATION 85.2 % (95-98); ARTERIAL BLOOD GAS PO2 56.5 mmHg (80-100); ARTERIAL BLOOD GAS pH 7.258 (7.350-7.450)
[2021-03-21 17:54] LABS: ALLENS TEST POSITIVE; VENT MODE S/T
[2021-03-21 17:55] LABS: VENT RATE 10
[2021-03-21] MEDS ORDERED: SODIUM CHLORIDE 250 ML IV STA (20:58)
[2021-03-21] MEDS: CHLORHEXIDINE GLUCONATE 4% CLEANSER FOR DECOLONIZATION TP SCH (22:05)
[2021-03-21] MEDS ORDERED: RAPID SEQUENCE INTUBATION KIT NR ONE (22:11)
[2021-03-21] MEDS ORDERED: EPINEPHrine 1:10,000 (P-F SYR) 1 MG/10 ML DISP.SYRIN ONE (22:32)
[2021-03-21] MEDS ORDERED: NOREPINEPHRINE BITARTRATE 4 MG/4 ML ML IV ONE (22:49)
[2021-03-21] MEDS ORDERED: MORPHINE SULFATE/0.9% NACL/PF 100 MG/100 ML BAG ONE (23:17)
[2021-03-21] MEDS ORDERED: NOREPINEPHRINE D5W PREMIX 16,000 MCG/500 ML BAG IVPB SCH (23:45)
[2021-03-21] MEDS ORDERED: VASOPRESSIN 40 UNITS/100 ML BAG IV SCH (23:45)
[2021-03-21] MEDS ORDERED: MORPHINE SULFATE/0.9% NACL/PF 100 MG/100 ML BAG IVPB SCH (23:45)
[2021-03-22 00:58] VITALS: BP 80/22; PULSE 53
== END 2021-03-21 23:30 | disposition expired | DRG 208 ==
LOC: JER 09:16 → JERBED 10:34 → J6S 03-11 22:31 → J2W 03-12 12:07
PROVIDERS: ADMIT Internal Medicine; ATTEND Internal Medicine
PROC: 5A09457 Assistance with Respiratory Ventilation, 24-96 Consecutive Hours, Continuous Positive Airway Pressure (ICD-10-PCS; 2021-03-15)
PROC: 5A1935Z Respiratory Ventilation, Less than 24 Consecutive Hours (ICD-10-PCS; principal; 2021-03-21)
PROC: 0BH17EZ Insertion of Endotracheal Airway into Trachea, Via Natural or Artificial Opening (ICD-10-PCS; 2021-03-21)
PROC: 5A12012 Performance of Cardiac Output, Single, Manual (ICD-10-PCS; 2021-03-21)
DX: U07.1 COVID-19 (principal); J12.82 Pneumonia due to coronavirus disease 2019; J80 Acute respiratory distress syndrome; N17.9 Acute kidney failure, unspecified; I47.1 Supraventricular tachycardia; E87.0 Hyperosmolality and hypernatremia; E11.65 Type 2 diabetes mellitus with hyperglycemia; K22.70 Barrett's esophagus without dysplasia; J44.9 Chronic obstructive pulmonary disease, unspecified; E66.9 Obesity, unspecified; Z68.34 Body mass index [BMI] 34.0-34.9, adult; W06.XXXA Fall from bed, initial encounter; Y92.092 Bedroom in other non-institutional residence as the place of occurrence of the external cause; E87.5 Hyperkalemia; R94.5 Abnormal results of liver function studies
CPT/HCPCS: 36415; 36600; 70450-TC; 71045-TC-FY; 72125-TC; 80048; 80053; 81003; 82550; 82728; 82803; 82962; 83036; 83615; 83735; 84100; 84484; 85025; 85027; 85379; 85610; 85730; 86140; 86480; 86803; 87086; 87340; 87517; 87804; 87807; 93005; 93010; 94002; 94660; 94761; 99285-25; C9803; J0131; J1100; J1644; J3490; U0003; U0005